=== PATIENT | female | born 1955 | race Caucasian/White ===

== ENCOUNTER → 2021-11-01 | Outpatient (CLI) | payer MEDICARE ==
[~2021-11-01] MED LIST: CELEXA20 MG PO; PERCOCET 5/325 T1 EA PO; SYNTHROID75 MCG PO; VITAMIN D250000 UNIT PO; ZOCOR20 MG PO
== END ==
LOC: HEART CORB 09:01
DX: R07.2 Precordial pain (principal); R06.02 Shortness of breath
CPT/HCPCS: 78452; A9502; J2785